=== PATIENT | female | born 1955 | race Caucasian/White ===

== ENCOUNTER → 2016-09-20 | Outpatient (CLI) | payer BC ==
--- NOTE | 2016-09-26 12:17 | Diagnostic Imaging Report ---
EXAM: DIG MICHELLE BILAT SCREEN W CAD The current study was also evaluated with a Computer Aided Detection (CAD) system. INDICATION: Screening. COMPARISON: Mammogram 08/16/2014, 08/24/2015. DENSITY: Scattered areas of fibroglandular density. FINDINGS: There is a new group of microcalcifications in the inner lower right breast, middle depth. No mass, calcification or architectural distortion suspicious for malignancy in the left breast. IMPRESSION: 1. New grouping of microcalcifications in the right breast. 2. No mammographic findings suspicious for malignancy in the left breast. RECOMMENDATION: Additional imaging of the right breast. BI-RADS category 0: Incomplete. ACR BI-RADS Category 0: Incomplete. (Needs additional imaging evaluation). Result letter will be mailed to the patient. Note: At least 10% of breast cancer is not imaged by mammography. Dictated by: Dictated on workstation # [id number]
== END ==
LOC: RAD 13:47 → MERGE 14:00
PROVIDERS: ATTEND Family Medicine
DX: Z12.31 Encounter for screening mammogram for malignant neoplasm of breast (principal); R92.0 Mammographic microcalcification found on diagnostic imaging of breast

== ENCOUNTER → 2016-10-03 | Outpatient (CLI) | payer BC ==
--- NOTE | 2016-10-03 15:10 | Diagnostic Imaging Report ---
EXAMINATION: DIGITAL MAMMO RT DIAG W/CAD. COMPARISON: 08/16/2014, 08/24/2015, and 09/20/2016. INDICATION: Further evaluation of microcalcifications. TECHNIQUE: Digital diagnostic mammography of the right breast was performed with a computer-aided detection (CAD) system. True lateral and spot magnification views were obtained. FINDINGS: The group of microcalcifications in the medial lower right breast has a christopher-like configuration suggestive of early secretory calcifications. This is best seen on the magnified CC view. No pleomorphic calcifications. IMPRESSION: The group of microcalcifications has morphology favoring benign secretory calcifications. Advise followup right mammogram in 6 months to ensure stability. ACR BI-RADS Category 3: Probably benign findings. Result letter will be mailed to the patient. Note: At least 10% of breast cancer is not imaged by mammography. Dictated by: Dictated on workstation # [id number]
== END ==
LOC: RAD 13:43
PROVIDERS: ATTEND Family Medicine
DX: R92.8 Other abnormal and inconclusive findings on diagnostic imaging of breast (principal); R92.0 Mammographic microcalcification found on diagnostic imaging of breast